=== PATIENT | male | born 1955 | race Caucasian/White ===

== ENCOUNTER → 2023-04-21 | Day surgery (SDC) | payer MEDICARE ==
[~2023-04-21] VITALS: Ht 162.6 cm; Wt 60.8 kg
[~2023-04-21] MED LIST: ALEN70TA79 PO; ATOR-2 PO; CLOP75TA33 PO; FENTANYL CITRATE/PF 50MCG/ML 2ML VIAL ONE; FINA5TAB11 PO; GLIP5TAB12 PO; GLYCOPYRROLATE 0.2 MG/ML 2ML VIAL ONE; LIDOCAINE HCL 1% 10 MG/ML 10ML VIAL ONE; LOSA100T33 PO; NEOSTIGMINE METHYLSULFATE 1MG/ML 10 ML VIAL ONE; ONDANSETRON HCL 4MG/2ML INJ IV PRN; ONDANSETRON HCL 4MG/2ML INJ ONE; PHENYLEPHRINE HCL 10 MG/ML 1ML (IV VIAL) IV ONE; PROPOFOL 200MG/20ML VIAL IV ONE; ROCURONIUM BROMIDE 10MG/ML VIAL 5ML IV ONE; SODIUM CHLORIDE 0.9% 1,000 ML IV SCH
== END | disposition home or self-care (01) ==
LOC: OR 05:33
PROVIDERS: ATTEND Urology
DX: C61 Malignant neoplasm of prostate (principal); I10 Essential (primary) hypertension; I25.10 Atherosclerotic heart disease of native coronary artery without angina pectoris; E11.9 Type 2 diabetes mellitus without complications; E78.00 Pure hypercholesterolemia, unspecified; N40.0 Benign prostatic hyperplasia without lower urinary tract symptoms; M81.0 Age-related osteoporosis without current pathological fracture; Z79.899 Other long term (current) drug therapy; Z98.890 Other specified postprocedural states; Z91.040 Latex allergy status; Z88.8 Allergy status to other drugs, medicaments and biological substances
CPT/HCPCS: 82962; 55880; J3010; J3490 ×3; J2710; J2405; J2370; J2704; A4217 ×2; Z7610 ×14